=== PATIENT | female | born 1970 ===

== ENCOUNTER 2024-08-29 14:50 | Outpatient (REF) | payer MEDICAID, SELFPAY | END 2024-08-29 14:51 | disposition home or self-care (01) | LOC: HO.CHCLNP 14:50 | PROVIDERS: Visit Provider Family Medicine | DX: Z12.4 Encounter for screening for malignant neoplasm of cervix (principal) | CPT/HCPCS: 87626; 88175 ==

== ENCOUNTER 2024-11-09 15:42 | Outpatient (REF) | payer MEDICAID, SELFPAY ==
--- OUTSIDE RECORDS SUMMARY | 2024-11-09 14:15 | XMS_ITS | Encounter Summary ---
Author Organization [employer] Address [address] [facility] 7 [place] [address] Care Team Providers Care Loom Tuner Name Role Phone Willian Carver MD Primary Care Prov ider Reason for Visit * Reason Comments Annual Exam Hypertension Encounter Details Date Type Department Care Team ([facility] st Contact Info) Description 11/09/2024 2:15 PM EDT Office Visit [facility] MED & PEDS [address] [place] [address] Willian Carver MD [address] [place] [address] Primary hypertension (Primary Dx) Social History Tobacco Use Types Packs/Day Years Used Date Smoking Tobacco: Never Smokeless Tobacco: Never Alcohol Use Standard Drinks/Week Comments Never 0 (1 standard drink = 0.6 oz pur e alcohol) Depression Answer Date Recorded Patient Health Questionnaire-9 Score 0 08/10/2024 Patient Health Questionnaire-9 Score 0 08/10/2024 Last PHQ-9: Questionnaire Data Not on file 0 08/10/2024 Housing Stability Answer Date Recorded What is your housing situation today? I have elder soares 08/10/[address] you li ve. Do you have problems with any of the following? None of the above 08/10/2024 Food Insecurity Answer Date Recorded Within the past 12 months, y ou worried that your food would run out before you got money to buy more: Never True 08/10/2024 Within the past 12 months,th e food you bought just didn't last and you didn't have enough money to get more: Never True Transportation Answer Date Recorded In the past 12 months, has l ack of transportation kept you from medical appts, meetings, work or from getting things needed for daily living? No 08/10/2024 Utilities Answer Date Recorded In the past 12 months, has t he electric, gas, oil or water company threatened to shut off services in your home? No 08/10/2024 Depression Answer Date Recorded Patient Health Questionnaire-2 Score 0 08/10/2024 Internet Access Answer Date Recorded Internet Access Q1 Yes 08/10/2024 Internet Access Q2 Not on file 08/10/2024 Comments No Sex and Gender Information Value Date Recorded Sex Assigned at Female 07/31/2024 12:29 PM EDT Legal Sex Female 12:28 PM EDT Gender Identity Female 08/10/2024 1:06 PM EDT Sexual Orientation Don't know 08/10/2024 1: 06 PM EDT documented as of this encounter Last Filed Vital Signs Vital Sign Reading Time Taken Comments Blood Pressure 148/96 11/09/2024 2:16 PM EDT Maniually checked Pulse 83 11/09/2024 2:16 PM EDT Temperature 36.4 C (97.5 F) 11/09/2024 2:16 PM EDT Respiratory Rate 20 11/09/2024 2:16 PM EDT Oxygen Saturation 98% 11/09/2024 2:1 6 PM EDT Inhaled Oxygen Concentration - - Weight 117 kg (259 lb) 11/09/2024 2:16 PM EDT Height 167.6 cm (5' 6 ) 11/09/2024 2:16 PM EDT Body Mass Index 41.8 11/09/2024 2:16 PM EDT documented in this encounter Plan of Treatment Scheduled Orders Name Type Priority Associated Diagnoses Orde r Schedule HIV-1/2 Antigen and Antibodies, Fourth Generation, with Reflexes Lab Routine Primary hypertension Expected: 11/09/2024 (Approximate), Expires: 11/09/2025 Hepatitis C Antibody with Reflex to HCV, RNA, Quantitative, Real-Time PCR Lab Routine Primary hypertension Expected: 11/09/2024, Expires: 11/09/2025 documented as of this encounter Procedures Procedure Name Priority Date/Time Associated Diagnosis Comments CBC WITH AUTO DIFFERENTIAL Routine 11/09/2024 3:47 PM EDT Primary hypertension HEMOGLOBIN A1C Routine 11/09/2024 3:47 PM EDT Primary hypertension LIPID PANEL, STANDARD Routine 11/09/2024 3:47 PM EDT Primary hypertension COMPREHENSIVE METABOLIC PANEL Routine 11/09/2024 3:47 PM EDT Primary hypertension documented in this encounter Results * Hemoglobin A1c (11/09/2024 3:47 PM EDT) Hemoglobin A1c 6.0 <6.0 % [facility] Comment:Hemoglobin A1C Refer ence Range Adults: 4.8 - 6.0 % Non diabetic: < 6.0 % Goal: < 7.0 %Additional Action Suggested: > 8.0 %Note: Hemoglobin A1c results are invalid for patients with abnormal amounts of HbF. Blood transfusions may impact the HbA1c concentration in the patient sample. Estimated Average Glucose 126 mg/dL [facility] Comment:eAG = Estimated ave rage glucose which is %A1C expressed asaverage glucose, using the formula of the A8E-HyuxvxiDfoohaf Glucose study (ADAG), Diabetes Care, Vol.31,#8,Sep. 2007 Blood Venous blood specimen / Unknown 11/09/2024 3:47 PM EDT 11/09/2024 5:38 PM EDT us Willian Mathew MD LAB BLOOD ORDERABL ES Final Result [facility] [address] [place] [phone] * (ABNORMAL) Lipid Panel, Standard (11/09/2024 3:47 PM EDT) Triglycerides 87 <150 mg/dL [facility] Comment:Desirable Triglyceri de: less than 150 mg/dLBorderline High Triglyceride 150-199 mg/dLHigh Triglyceride: 200-499 mg/dLVery High Triglyceride: greater than or equal to 5OO mg/dL Cholesterol 174 <200 mg/dL [facility] Comment:Desirable Cholestero l: less than 200 mg/dLBorderline High Cholesterol: 200-239 mg/dLHigh Cholesterol: greater than 239 mg/dL LDL Cholesterol Calculated 118(H) <100 mg/dL [facility] Comment:Desirable LDL: less than 100 mg/dLNear Optimal/Above Optimal LDL: 110- 129 mg/dLBorderline High LDL: 130-159 mg/dLHigh LDL: 160-189 mg/dLVery High LDL: greater than or equal to 190 mg/dL HDL Cholesterol 39(L) >40 mg/dL [facility] Comment:Desirable HDL: great er than 40 mg/dL Note: This HDL assay may give artificially low results in patients with liver disease. Blood Venous blood specimen / Unknown 11/09/2024 3:47 PM EDT 11/09/2024 5:38 PM EDT us Willian Mathew MD LAB BLOOD ORDERABL ES Final Result [facility] [address] [place] [phone] * (ABNORMAL) Comprehensive Metabolic Panel (11/09/2024 3:47 PM EDT) Sodium 140 135 - 145 mmol/L [facility] Potassium 3.6 3.3 - 5.1 mmol/L [facility] Chloride 105 96 - 108 mmol/L [facility] Carbon Dioxide 26 22 - 29 mmol/L [facility] Anion Gap 13 12 - 20 [facility] Urea Nitrogen (BUN) 13 9 - 16 mg/dL [facility] Creatinine, Serum 0.85 0.5 - 1.4 mg/dL [facility] Estimated Glomerular Filt Rate >60 [facility] Comment:Chronic Kidney Disea se: Estimated GFR < 60 mL/min/1.25u5Wqthrp Kidney Disease: Estimated GFR < 15 mL/min/1.73m2 Glucose 95 60 - 115 mg/dL [facility] Calcium 9.2 8.4 - 10.2 mg/dL [facility] Bilirubin, Total 0.6 0.0 - 1.0 mg/dL [facility] Aspartate Amino Transferase 32(H) 5 - 31 U/L [facility] Alanine Aminotransferase 29 0 - 31 U/L [facility] Total Protein 7.7 6.5 - 8.0 g/dL [facility] Albumin Level 4.5 3.5 - 5.0 g/dL [facility] Alkaline Phosphatase 102 39 - 117 U/L [facility] Blood Venous blood specimen / Unknown 11/09/2024 3:47 PM EDT 11/09/2024 5:38 PM EDT us Willian Mathew MD LAB BLOOD ORDERABL ES Final Result [facility] [address] [place] [phone] * CBC auto differential (11/09/2024 3:47 PM EDT) White Blood Count 7.8 4.8 - 10.8 X10*3/uL [facility] Red Blood Count 4.48 4.20 - 5.50 X10*6/uL [facility] Hemoglobin 12.9 12.0 - 16.0 g/dl [facility] Hematocrit 39.3 37.0 - 47.0 % [facility] Mean Corpuscular Volume 87.7 80.0 - 98.0 fL [facility] Mean Corpuscular Hemoglobin 28.8 27.0 - 33.0 pg [facility] Mean Corpuscular HGB Conc 32.8 31.0 - 35.0 g/dl [facility] Red Cell Distribution Width 13.8 11.0 - 16.0 % [facility] Platelet Count 246 160 - 400 X10*3/uL [facility] Mean Platelet Volume 9.7 9.4 - 12.3 fL [facility] Neutrophils Percent Auto 67.5 45 - 73 % [facility] Imm Gran Pct Auto 0.3 0.0 - 0.4 % [facility] Lymphocytes Percent Auto 21.7 20 - 40 % [facility] Monocytes Percent Auto 8.2 2 - 11 % [facility] Eosinophils Percent Auto 1.7 0 - 4 % [facility] Basophils Percent Auto 0.6 0 - 2 % [facility] NRBC Pct Auto 0.0 0.0 - 0.2 /100WBC [facility] Neutrophils Absolute Auto 5.3 2.0 - 8.3 x10*3/uL [facility] Imm Gran Abs Auto 0.02 0.00 - 0.03 X10*3/uL [facility] Lymphocytes Absolute Auto 1.7 1.2 - 4.9 X10*3/uL [facility] Monocytes Absolute Auto 0.6 0.1 - 1.2 X10*3/uL [facility] Eosinophils Absolute Auto 0.1 0.0 - 0.4 X10*3/uL [facility] Basophils Absolute Auto 0.1 0.0 - 0.2 X10*3/uL [facility] NRBC Abs Auto 0.000 0.0 - 0.012 X10*3/uL [facility] Blood Venous blood specimen / Unknown 11/09/2024 3:47 PM EDT 11/09/2024 5:38 PM EDT us Willian Mathew MD LAB BLOOD ORDERABL ES Final Result [facility] [address] [place] [phone] documented in this encounter Visit Diagnoses Diagnosis Primary hypertension- Primary Unspecified essential hypertension documented in this encounter Additional Health Concerns Assessment Noted Time PHQ-9 Depression Total Score: 0 08/11/19 2:49 PM EDT documented as of this encounter Care Teams Loom Tuner Relationship Specialty Start Date End Date Willian Carver MD [address] [place] [phone] PCP - General Internal Medicine 08/10/24 documented as of this encounter
[2024-11-09 17:43] LABS: MANUAL DIFF FLAG NO
[2024-11-09 18:10] LABS: Hematocrit 39.3 % (37.0-47.0); Hemoglobin 12.9 g/dl (12.0-16.0); Imm Gran Abs Auto 0.02 X10*3/uL (0.00-0.03); Imm Gran Pct Auto 0.3 % (0.0-0.4); Lymphocytes Absolute Auto 1.7 X10*3/uL (1.2-4.9); Mean Corpuscular HGB Conc 32.8 g/dl (31.0-35.0); Mean Corpuscular Hemoglobin 28.8 pg (27.0-33.0); Mean Corpuscular Volume 87.7 fL (80.0-98.0); NRBC Abs Auto 0.000 X10*3/uL (0.0-0.012); NRBC Pct Auto 0.0 /100WBC (0.0-0.2); Platelet Count 246 X10*3/uL (160-400); Red Blood Count 4.48 X10*6/uL (4.20-5.50); White Blood Count 7.8 X10*3/uL (4.8-10.8)
[2024-11-09 18:13] LABS: Hemoglobin A1C 140.5045 umol/L; Total Hemoglobin (HGBA1C) 3343.6401 umol/L
[2024-11-09 18:26] LABS: Alanine Aminotransferase 29 U/L (0-31); Albumin Level 4.5 g/dL (3.5-5.0); Alkaline Phosphatase 102 U/L (39-117); Anion Gap 13 (12-20); Aspartate Amino Transferase 32 U/L (5-31); Blood Urea Nitrogen 13 mg/dL (9-16); Calcium 9.2 mg/dL (8.4-10.2); Carbon Dioxide 26 mmol/L (22-29); Chloride 105 mmol/L (96-108); Cholesterol 174 mg/dL (<200); Estimated Glomerular Filt Rate > 60; HDL Cholesterol 39 mg/dL (>40); Potassium 3.6 mmol/L (3.3-5.1); Sodium 140 mmol/L (135-145); Total Protein 7.7 g/dL (6.5-8.0); Triglycerides 87 mg/dL (<150)
--- OUTSIDE RECORDS SUMMARY | 2024-11-09 19:46 | XMS_ITS | Encounter Summary ---
Author Organization [employer] Address [address] [facility] 7 [place] [address] Care Team Providers Care Automotive Service Technician Name Role Phone Willian Carver MD Primary Care Prov ider Reason for Visit * Reason Onset Date Comments chart prep 11/08/2024 Encounter Details Date Type Department Care Team ([facility] st Contact Info) Description 11/08/[address] [facility] CH[facility] MED & PEDS [address] [place] [address] Willian Carver MD [address] [place] [address] chart prep Social History Tobacco Use Types Packs/Day Years [...] PM EDT documented as of this encounter Miscellaneous Notes * Telephone Encounter - Nichole Moura [place] - 11/08/2024 4:15 PM EDT Chart Prep Labs: done Images: not done Referrals: not applicable Vaccines due: Covid, Flu, and Zoster Screenings: mammogram Overdue care gaps: SBIRT documented in this encounter Plan of Treatment Not on file documented as of this encounter Visit Diagnoses Not on filedocumented in this encounter Additional Health Concerns Assessment Noted Time PHQ-9 Depression Total Score: 0 08/11/19 2:49 PM EDT documented as of this encounter Care Teams Automotive Service Technician Relationship Specialty Start Date End Date Willian Carver MD [address] [place] [phone] PCP - General Internal Medicine 08/10/24 documented as of this encounter
--- OUTSIDE RECORDS SUMMARY | 2024-11-09 19:46 | XMS_ITS | Encounter Summary ---
Author Organization [employer] Address [address] [facility] 7 [place] [address] Care Team Providers Care Senior Application Security Consultant Name Role Phone Willian Carver MD Primary Care Prov ider Reason for Visit * Reason Comments Med Refill Encounter Details Date Type Department Care Team ([facility] st Contact Info) Description 10/31/2024 Refill [facility] CH[facility] MED & PEDS [address] [place], [place] [phone] Willian Carver MD [address] [place] [address] Social History Tobacco Use Types Packs/Day Years [...] PM EDT documented as of this encounter Plan of Treatment Not on file documented as of this encounter Visit Diagnoses Not on filedocumented in this encounter Additional Health Concerns Assessment Noted Time PHQ-9 Depression Total Score: 0 08/11/19 2:49 PM EDT documented as of this encounter Care Teams Senior Application Security Consultant Relationship Specialty Start Date End Date Willian Carver MD [address] [place] [phone] PCP - General Internal Medicine 08/10/24 documented as of this encounter
--- OUTSIDE RECORDS SUMMARY | 2024-11-09 19:46 | XMS_ITS | Encounter Summary ---
Author Organization [employer] Address [address] [facility] 7[address] [place] [address] Care Team Providers Care Dedicated Local Truck Driver Name Role Phone Willian Carver MD Primary Care Prov ider Encounter Details Date Type Department Care Team (Latest Contact Info) Description 11/09/2024 Travel Social History Tobacco Use Types Packs/Day Years [...] documented as of this encounter Care Teams Dedicated Local Truck Driver Relationship Specialty Start Date End Date Willian Carver MD [address] [place] [phone] PCP - General Internal Medicine 08/10/24 documented as of this encounter
--- OUTSIDE RECORDS SUMMARY | 2024-11-09 19:46 | XMS_ITS | Encounter Summary ---
Author Organization [employer] Address [address] [facility] 7 [place] [address] Care Team Providers Care Winding Machine Operator Name Role Phone Willian Carver MD Primary Care Prov ider Reason for Visit * Reason Onset Date Comments Medication Question 09/25/2024 Encounter Details Date Type Department Care Team ([facility] Contact Info) Description 09/25/2024 Telephone [facility] MED [facility] PEDS [address] [place] [address] Willian Carver MD [address] [place] [address] Medication Question Social History Tobacco Use Types Packs/Day Years [...] encounter Miscellaneous Notes * Telephone Encounter - Jia Hargrove - 09/25/2024 11:28 AM EDT Tc from pt requesting status on medication for HTN. Pt had nurse visit for bp on 09/18/24. Contact pt at [phone] documented in this encounter Plan of Treatment Not on file documented as of this encounter Visit Diagnoses Not on filedocumented in this encounter Additional Health Concerns Assessment Noted Time PHQ-9 Depression Total Score: 0 08/11/19 2:49 PM EDT documented as of this encounter Care Teams Winding Machine Operator Relationship Specialty Start Date End Date Willian Carver MD [address] [place] [phone] PCP - General Internal Medicine 08/10/24 documented as of this encounter
--- OUTSIDE RECORDS SUMMARY | 2024-11-09 19:46 | XMS_ITS | Clinical Summary ---
Author Organization [employer] Address [address] [place] [address] Care Team Providers Care Medtronics Technician Name Role Phone Willian Carver MD Primary Care Prov ider Allergies Active Allergy Reactions Criticality Noted Date Comments Sulfamethoxazole-Trimethoprim Rash Low 2024 Morphine Palpitations Low 08/10/2024 Medications amLODIPine (Norvasc) 10 MG tablet Take 1 tablet (10 mg) by mouth Once per day. 90 tablet 08/11/19 25 Active omeprazole (PriLOSEC) [address] capsule Take 1 capsule (20 mg) by mouth before breakfast. Do not crush or chew. 90 capsule 08/11/19 25 Active Blood Pressure kit 1 kit Once per day. 1 kit 08/11/19 25 Active apixaban (Eliquis) 5 MG tablet Take 1 tablet (5 mg) by mouth 2 times daily. 180 tablet 3 11/10/19 25 026 Active hydroCHLOROthi azide (HYDRODiuril) 25 MG tablet Take 1 tablet (25 mg) by mouth Once per day. 90 tablet 3 11/10/19 25 026 Active losartan (Cozaar) 50 MG tablet Take 1 tablet (50 mg) by mouth Once per day. 30 tablet 11 11/10/19 25 026 Active apixaban (Eliquis) 5 MG tablet Take 1 tablet (5 mg) by mouth 2 times daily. 180 tablet 08/11/19 25 025 Discontinued(Re order (will not trigger notification to Pharmacy)) hydroCHLOROthi azide (HYDRODiuril) 25 MG tablet Take 25 mg by mouth Once per day. 025 Discontinued(Re order (will not trigger notification to Pharmacy)) Active Problems Problem Noted Date Diagnosed Date Severe episode of recurrent major depressive disorder, without psychotic features 08/29/2024 Gastroesophageal reflux disease without esophagi tis 08/29/2024 Cervical cancer screening 08/29/2024 Assessment & Plan (08/29/2024 10:23 AM EDT): 53 y.o. here for cervical cancer screening. Will continue monitoring following ASCCP guidelines. Encounter for screening mamm ogram for malignant neoplasm of breast 08/10/2024 Assessment & Plan (08/10/2024 3:12 PM EDT): Last pcp visit 6 months ago ER visit - Hospitalization: DVT 1991, 2016, 2018 Pmhx: Unprovoked DVT, htn, gerd, scoliosis, PSHX: csec x3 1991/1993/2016, hernia 2014 All: mophine, bactrim rash Meds: eliquis 5mg BID, amlodipine A1 LMP: 01/2024 Mammogram: due Pap smear Due Colonoscopy Due Primary hypertension 08/10/2024 Assessment & Plan (08/29/2024 10:25 AM EDT): Uncontrolled. Concern of compliance. She is also using hydrochlorothiazide from [facility], added to list. Target BP < 140/90 mmHg following JNC-8 guidelines. At this moment, she reports she didn't take her meds, will scheduled f/up with nursing. No labs in chart, before making changes if needed will need to check renal function. Future Appointments Date Time Provider Department Center 09/18/2024 11:00 AM [facility] NURSE [facility] 11/09/2024 2:15 PM Willian Mathew MD [facility] Nursing Visit Instructions: - If SBP < 140/DBP <90 mmHg in more than 75% of home self-monitoring, continue current medication regimen and make f/u with PCP in 3 month - If SBP >140-165/DBP >90-115 mmHg , add losartan 50 mg and f/u with PCP in 1 month - If SBP > 165/ DBP> 115 mmHg, consult with covering provider - If SBP <90/DBP <50 mmHg, consult with covering provider. Screening for colon cancer 08/10/2024 Encounters Date Type Department Care Team Description 11/09/2024 2:15 PM EDT Office Visit [facility] [address] [place] [address] Willian Carver MD Primary hypertension (Primary Dx) 11/09/2024 Travel 11/08/2024 Telephone [facility] [address] [place] [address] Willian Carver MD chart prep 11/02/2024 Patient Outreach [facility] [address] [place] [address] Willian Carver MD Pre-visit Planning (SDOH screening completed on 08/10/24 ) 11/02/2024 Travel 10/31/2024 Refill [facility] [address] [place] [address] Willian Carver MD 10/18/2024 Population Health Risk Score [facility] Department [address] [place] [phone] Provider, Population Health Generic 09/25/2024 Telephone [facility] [address] [place] [address] Willian Carver MD Medication Question 09/18/2024 11:00 AM EDT Clinical Support [facility] [address] [place] [address] Elba Davey RN Primary hypertension [I10] 09/18/2024 Telephone [facility] [address] [place] [address] Willian Carver MD PT-1 09/18/2024 Travel 09/13/2024 Travel 08/29/2024 9:40 AM EDT Procedure Visit [facility] [address] [place] [address] Nicole Damon MD Severe episode of recurrent major depressive disorder, without psychotic features (CMS/HCC) (Primary Dx); Gastroesophageal reflux disease without esophagitis; Encounter for immunization; Dietary counseling; Exercise counseling; Class 3 drug-induced obesity with serious comorbidity and body mass index (BMI) of 40.0 to 44.9 in adult ([facility]); Cervical cancer screening; Primary hypertension 08/29/2024 Travel 08/10/2024 2:45 PM EDT Telemedicine [facility] [address] [place] [address] Willian Carver MD Encounter for medical examination to establish care (Primary Dx); Screening for colon cancer; Encounter for screening mammogram for malignant neoplasm of breast; Primary hypertension 08/10/2024 Travel 08/10/2024 Telephone [facility] [address] [place] [address] Joaquín Henry MD New Patient appt. from Last 3 Months Immunizations Immunization Administration Dates Next Due Hep A, Adult 01/27/2012 Hep B, adult 11/27/2011, 1,06/17/2000,04/16 MMR 01/19/2014 Pneumococcal Conjugate PCV 20 08/29/2024 Pneumococcal Polysaccharide PPSV23 11/27/2011 TD (adult), 2 Lf tetanus tox oid, preservative free, adsorbed 03/29/2009 Tdap 08/29/2024,11/27/2011 Family History Medical History Relation Name Comments Diabetes Father Hypertension Father Arthritis Mother Diabetes Mother Hypertension Mother Cervical cancer Sister Relation Name Status Comments Father Mother Sister Social History Tobacco Use Types Packs/Day Years Used Date Smoking Tobacco: Never Smokeless Tobacco: Never Tobacco Cessation:Counseling Given: Not Answered Alcohol Use Standard Drinks/Week Comments Never 0 [...] Don't know 08/10/2024 1: 06 PM EDT Last Filed Vital Signs Vital Sign Reading [...] Mass Index 41.8 11/09/2024 2:16 PM EDT Plan of Treatment Health Maintenance Due Date Last Done Comments CT Colonography 1971 Colonoscopy 1970 FIT 1970 HIV Screening 1970 Sigmoidoscopy 1970 Family Planning (PISQ) 11/28/1986 Hepatitis C Screening 11/28/1989 HPV/Cotest 11/28/2001 Mammogram 2011 Zoster Vaccines (1 of 2) 11/28/2021 COVID-19 Vaccine ( season) 2024 Depression Screening 08/10/2025 08/10/2024, 08/11/19 SDOH Screening 08/10/2025 08/10/2024 Influenza Vaccine (#1) 2025 11/01/2015 Postp oned from 10/16/2024 (Patient Refused) FOBT 08/24/2025 08/24/2024 Tobacco Screening 08/29/2025 08/29/2024 Disability Screening 11/02/2025 11/02/2024 Alcohol/Substance Use Screening 11/09/2025 11/09/2024 Diabetes: Hemoglobin A1C 11/09/2025 11/09/2024 Colorectal Cancer Screening 08/25/2027 FIT DNA/Cologuard 08/25/2027 08/24/2024 Cervical Cancer Screening 08/30/2027 Pap Smear 08/30/2027 08/29/2024 Lipid Panel 11/09/2029 11/09/2024 DTaP/Tdap/Td Vaccines (3 - Td or Tdap) 08/29/2034 08/29/2024, 11/27/2011, 03/29/2009 RSV Patients and Patients Aged 60 years or older (1 - 1-dose 75+ series) 11/28/2046 Hepatitis B Vaccines Completed 11/27/2011, 07/07/2000, 06/17/2000, Additional history exists Hepatitis A Vaccines Aged Out 01/27/2012 No long er eligible based on patient's age to complete this topic Pneumococcal Vaccine: 50+ Years Completed 08/29/2024, 11/27/2011 HIB Vaccines Aged Out No longer eligi ble based on patient's age to complete this topic HPV Vaccines Aged Out No longer eligi ble based on patient's age to complete this topic IPV Vaccines Aged Out No longer eligi ble based on patient's age to complete this topic Meningococcal B Vaccine Aged Out No l onger eligible based on patient's age to complete this topic Meningococcal Vaccine Aged Out No mir stefani eligible based on patient's age to complete this topic RSV under 20 months Aged Out No longe r eligible based on patient's age to complete this topic Rotavirus Vaccines Aged Out No longer eligible based on patient's age to complete this topic Procedures Procedure Name Priority Date/Time Associated Diagnosis Comments HEMOGLOBIN A1C Routine 11/09/2024 3:47 PM EDT Primary hypertension LIPID PANEL, STANDARD Routine 11/09/2024 3:47 PM EDT Primary hypertension COMPREHENSIVE METABOLIC PANEL Routine 11/09/2024 3:47 PM EDT Primary hypertension CBC WITH AUTO DIFFERENTIAL Routine 11/09/2024 3:47 PM EDT Primary hypertension PAP SMEAR Routine 08/29/2024 10:29 AM EDT Cervical cancer screening LAB COLOGUARD COLON CANCER SCREEN Routine 08/24/2024 10:59 AM EDT Screening for colon cancer from Last 3 Months Results * CBC auto differential (11/09/2024 3:47 PM EDT) White Blood Count 7.8 4.8 - 10.8 X10*3/uL [facility] Red Blood Count 4.48 4.20 - 5.50 X10*6/uL [facility] Hemoglobin 12.9 12.0 - 16.0 g/dl [facility] Hematocrit 39.3 37.0 - 47.0 % [facility] Mean Corpuscular Volume 87.7 80.0 - 98.0 fL [facility] Mean Corpuscular Hemoglobin 28.8 27.0 - 33.0 pg [facility] Mean Corpuscular HGB Conc 32.8 31.0 - 35.0 g/dl [facility] Red Cell Distribution Width 13.8 11.0 - 16.0 % [facility] Platelet Count 246 160 - 400 X10*3/uL [facility] Mean Platelet Volume 9.7 9.4 - 12.3 fL [facility] Neutrophils Percent Auto 67.5 45 - 73 % [facility] Imm Gran Pct Auto 0.3 0.0 - 0.4 % [facility] Lymphocytes Percent Auto 21.7 20 - 40 % [facility] Monocytes Percent Auto 8.2 2 - 11 % [facility] Eosinophils Percent Auto 1.7 0 - 4 % [facility] Basophils Percent Auto 0.6 0 - 2 % [facility] NRBC Pct Auto 0.0 0.0 - 0.2 /100WBC [facility] Neutrophils Absolute Auto 5.3 2.0 - 8.3 x10*3/uL [facility] Imm Gran Abs Auto 0.02 0.00 - 0.03 X10*3/uL [facility] Lymphocytes Absolute Auto 1.7 1.2 - 4.9 X10*3/uL [facility] Monocytes Absolute Auto 0.6 0.1 - 1.2 X10*3/uL [facility] Eosinophils Absolute Auto 0.1 0.0 - 0.4 X10*3/uL [facility] Basophils Absolute Auto 0.1 0.0 - 0.2 X10*3/uL [facility] NRBC Abs Auto 0.000 0.0 - 0.012 X10*3/uL [facility] Blood Venous blood specimen / Unknown 11/09/2024 3:47 PM EDT 11/09/2024 5:38 PM EDT Willian Mathew MD LAB BLOOD ORDERABL ES Final Result [facility] [address] [place] [address] [phone] * Hemoglobin A1c (11/09/2024 3:47 PM EDT) Hemoglobin A1c 6.0 <6.0 % [facility] Comment:Hemoglobin A1C Refer ence Range Adults: 4.8 - 6.0 % Non diabetic: < 6.0 % Goal: < 7.0 %Additional Action Suggested: > 8.0 %Note: Hemoglobin A1c results are invalid for patients with abnormal amounts of HbF. Blood transfusions may impact the HbA1c concentration in the patient sample. Estimated Average Glucose 126 mg/dL [facility] Comment:eAG = Estimated ave rage glucose which is %A1C expressed asaverage glucose, using the formula of the K4E-HbtfzvuVmjyytg Glucose study (ADAG), Diabetes Care, Vol.31,#8,Sep. 2007 Blood Venous blood specimen / Unknown 11/09/2024 3:47 PM EDT 11/09/2024 5:38 PM EDT Willian Mathew MD LAB BLOOD ORDERABL ES Final Result Performing Organization Address [facility] Co de Phone Number [facility] [address] [place] [phone] * (ABNORMAL) Lipid Panel, Standard (11/09/2024 3:47 PM EDT) Triglycerides 87 <150 mg/dL [facility] Comment:Desirable Triglyceri de: less than 150 mg/dLBorderline High Triglyceride 150-199 mg/dLHigh Triglyceride: 200-499 mg/dLVery High Triglyceride: greater than or equal to 5OO mg/dL Cholesterol 174 <200 mg/dL [facility] Comment:Desirable Cholestero l: less than 200 mg/dLBorderline High Cholesterol: 200-239 mg/dLHigh Cholesterol: greater than 239 mg/dL LDL Cholesterol Calculated 118(H) <100 mg/dL [facility] Comment:Desirable LDL: less than 100 mg/dLNear Optimal/Above Optimal LDL: 110- 129 mg/dLBorderline High LDL: 130-159 mg/dLHigh LDL: 160-189 mg/dLVery High LDL: greater than or equal to 190 mg/dL HDL Cholesterol 39(L) >40 mg/dL [facility] Comment:Desirable HDL: great er than 40 mg/dL Note: This HDL assay may give artificially low results in patients with liver disease. Blood Venous blood specimen / Unknown 11/09/2024 3:47 PM EDT 11/09/2024 5:38 PM EDT us Willian Mathew MD LAB BLOOD ORDERABL ES Final Result Performing Organization Address [facility]/ZIP Co de Phone Number [facility] [address] [place] [phone] * (ABNORMAL) Comprehensive Metabolic Panel (11/09/2024 3:47 PM EDT) Sodium 140 135 - 145 mmol/L [facility] Potassium 3.6 3.3 - 5.1 mmol/L [facility] Chloride 105 96 - 108 mmol/L [facility] Carbon Dioxide 26 22 - 29 mmol/L [facility] Anion Gap 13 12 - 20 [facility] Urea Nitrogen (BUN) 13 9 - 16 mg/dL [facility] Creatinine, Serum 0.85 0.5 - 1.4 mg/dL [facility] Estimated Glomerular Filt Rate >60 [facility] Comment:Chronic Kidney Disea se: Estimated GFR < 60 mL/min/1.56g9Jmvbbo Kidney Disease: Estimated GFR < 15 mL/min/1.73m2 Glucose 95 60 - 115 mg/dL [facility] Calcium 9.2 8.4 - 10.2 mg/dL [facility] Bilirubin, Total 0.6 0.0 - 1.0 mg/dL [facility] Aspartate Amino Transferase 32(H) 5 - 31 U/L [facility] Alanine Aminotransferase 29 0 - 31 U/L [facility] Total Protein 7.7 6.5 - 8.0 g/dL [facility] Albumin Level 4.5 3.5 - 5.0 g/dL [facility] Alkaline Phosphatase 102 39 - 117 U/L [facility] Blood Venous blood specimen / Unknown 11/09/2024 3:47 PM EDT 11/09/2024 5:38 PM EDT us Willian Mathew MD LAB BLOOD ORDERABL ES Final Result [facility] [address] [place] [address] [phone] * Pap Smear (08/29/2024 10:29 AM EDT) Swab Cervical swab / Unknown 08/29/2024 10:29 AM EDT 08/30/2024 8:04 AM EDT [facility] - 09/01/2024 11:34 AM EDT ----- ------- Name: Catherine Berkowitz Age/Sex: 53/F : 1970 Unit#: [id number] Attend Dr: Nicole Damon MD Re08/29/24 Status: DEP REF Location: .CHCLNP Disch: ----- ------- SPEC : [id number] RECD: 08/30/24 STATUS: ADELINA YEPEZ NUM: [id number] MIGUEL: 08/29/24-[address] [facility] [address]: Nicoel Damon MD ENTERED: 08/30/24 SP TYPE: Pap Smr OT DR: ORDERED: Pap Smear Interpretation Satisfactory for evaluation. Negative for intraepithelial lesion or malignancy. No endocervical cells seen. Clinical Information LMP: 02/16/2024 Previous PAP test: Unknown date/findings Material Received ThinPrep-Cervical PAP Disclaimer As of December 08, 2023, the technical services to include automated prescreening performed by the ThinPrep Imaging System, PAP screening and HPV testing will be performed at [facility] (CLIA #[id number]), [address] [place] [address]. Testing for HPV was performed using the [employer] IZZY 6800 system. The presence of HPV in the female genital tract is associated with a number of diseases, including cervical carcinoma. The HPV DNA high risk pool tests for HPV 31, 33, 35, 39, 45, 51, 52, 56, 58, 59, 66 and 68. The testing for HPV 16 and 18 genotypes has also been performed. A positive result indicates detection of nucleic acid sequences from one or more subtypes, whereas a negative result indicates such sequences were not detected. All professional services are performed by [facility] ([address] [place] [address]; ; CLIA #[id number]). The PAP Test is a screening procedure with the inherent possibility of both false negative and false positive results. Results should be interpreted in the context of historic and current clinical findings. Reliability of the PAP Test is enhanced by performing the test on a regular repetitive basis. ----- ------- Signed (signature on file) JUAN Hammer (ASCP) 09/01/24 1134 ----- ------- END OF REPORT us Nicole Damon MD LAB CYTOLOGY ORDERABLES Final Result [facility] [address] [place] [address] [phone] * Cologuard?? colon cancer screening (08/24/2024 10:59 AM EDT) Cologuard Result Negative Negative 08/30/19 8:10 PM EDT [facility] (CLIA #:[id number]) Comment: The Cologuard (TM) test was performed on this specimen. NEGATIVE TEST RESULT. A negative Cologuard result indicates a low likelihood that a colorectal cancer (CRC) or advanced adenoma (adenomatous polyps with more advanced pre-malignant features) is present. The chance that a person with a negative Cologuard test has a colorectal cancer is less than 1 in 1500 (negative predictive value >99.9%) or has an advanced adenoma is less than 5.3% (negative predictive value 94.7%). These data are based on a prospective cross-sectional study of 10,000 individuals at average risk for colorectal cancer who were screened with both Cologuard and colonoscopy. (Juliocesar Boston et al, N Engl J Med 2014;370(14):1286- 1297) The normal value (reference range) for this assay is negative. COLOGUARD RE-SCREENING RECOMMENDATION: Periodic colorectal cancer screening is an important part of preventive healthcare for asymptomatic individuals at average risk for colorectal cancer. Following a negative Cologuard result, the [employer] Cancer Society and U.S. Multi-Society Task Force screening guidelines recommend a Cologuard re-screening interval of 3 years. References: [employer] Society Guideline for Colorectal Cancer Screening: https://www.cancer.org/cancer/gkaak-uektae-vovtta/xmsglewyu-ltzawwlgj-ekduwxj/ac s-rec ommendations.html.; Mike GROSSMAN, Shua MOTA, Azul MeredithK, Colorectal Cancer Screening: Recommendations for Physicians and Patients from the U.S. Multi-Society Task Force on Colorectal Cancer Screening , Am J Gastroenterology 2017; 112:1383-8410. TEST DESCRIPTION: Composite algorithmic analysis of stool DNA-biomarkers with hemoglobin immunoassay. Quantitative values of individual biomarkers are not reportable and are not associated with individual biomarker result reference ranges. Cologuard is intended for colorectal cancer screening of adults of either sex, 45 years or older, who are at average-risk for colorectal cancer (CRC). Cologuard has been approved for use by the U.S. FDA. The performance of Cologuard was established in a cross sectional study of average-risk adults aged 50-84. Cologuard performance in patients ages 45 to 49 years was estimated by sub-group analysis of near-age groups. Colonoscopies performed for a positive result may find as the most clinically significant lesion: colorectal cancer [4.0%], advanced adenoma (including sessile serrated polyps greater than or equal to 1cm diameter) [20%] or non- advanced adenoma [31%]; or no colorectal neoplasia [45%]. These estimates are derived from a prospective cross-sectional screening study of 10,000 individuals at average risk for colorectal cancer who were screened with both Cologuard and colonoscopy. (Juliocesar Box. et al, N Engl J Med 2014;370(14):6305-5324.) Cologuard may produce a false negative or false positive result (no colorectal cancer or precancerous polyp present at colonoscopy follow up). A negative Cologuard test result does not guarantee the absence of CRC or advanced adenoma (pre-cancer). The current Cologuard screening interval is every 3 years. ([employer] Society and U.S. Multi-Society Task Force). Cologuard performance data in a 10,000 patient pivotal study using colonoscopy as the reference method can be accessed at the following location: www.[employer]/results. Additional description of the Cologuard test process, warnings and precautions can be found at www.[employer].com. Stool specimen (specimen) 08/24/2024 10:59 AM EDT 08/25/2024 10:54 AM EDT Willian Mathew MD LAB MOLECULAR DIAG NOSTICS ORDERABLES Final Result [facility] (CLIA #:[id number]) [address] [place] [address], from Last 3 Months Insurance C3 Care Teams [employer] Technician Relationship Specialty Start Date End Date Willian Carver MD [address] [place] [phone] PCP - General Internal Medicine 08/10/24
[2024-11-10 08:37] LABS: HIV Num 1 0.04 S/CO (0.00-0.99); ~HepC Num1 0.16 S/CO (0.00-0.79); ~Hepatitis C Antibody Nonreactive (Nonreactive)
== END 2024-11-09 15:43 | disposition home or self-care (01) ==
LOC: HO.CHCLDS 15:42
PROVIDERS: Visit Provider Internal Medicine
DX: I10 Essential (primary) hypertension (principal); Z11.4 Encounter for screening for human immunodeficiency virus [HIV]; Z11.59 Encounter for screening for other viral diseases
CPT/HCPCS: 36415; 80053; 80061; 83036; 85025; 86803; 87389